=== PATIENT | male | born 1960 | race African-American/Black ===

== ENCOUNTER 2018-02-17 11:07 | Emergency (ER) | payer BC ==
[2018-02-17] MEDS ORDERED: HYDROCODONE/APAP 5/325 MG TAB ONE (15:13)
--- NOTE | 2018-02-17 15:29 | RAD REPORT ---
EXAM DESCRIPTION: USEXTREM VENOUS W COMPRESS BIL02/17/2018 3:21 pm CLINICAL HISTORY: Bilateral leg pain COMPARISON: none FINDINGS: The common femoral, superficial femoral, popliteal and posterior tibial veins bilaterally are compressible and demonstrate augmentation. Doppler demonstrates good flow. IMPRESSION: No evidence of deep venous thrombosis involving either lower extremity.
--- NOTE | 2018-02-17 16:17 | RAD REPORT ---
EXAM DESCRIPTION: RAD - Knee Right 3 View - 02/17/2018 3:46 pm CLINICAL HISTORY: Right FINDINGS: No fracture or dislocation is seen. Marked osteoarthritis involves the medial compartment consisting joint space narrowing and osteophyte s.
--- NOTE | 2018-02-17 16:17 | RAD REPORT ---
EXAM DESCRIPTION: RAD - Knee Left 3 View - 02/17/2018 3:45 pm CLINICAL HISTORY: Left knee pain FINDINGS: No fracture or dislocation is seen. Marked osteoarthritis involves the medial compartment consisting joint space narrowing and osteophyte s. The patella femoral compartment is also involved
--- NOTE | 2018-02-17 16:37 | ER ---
Nurse's Notes [facility] Name: Asa Red Age: 58 yrs Sex: Male : 1960 Arrival Date: 02/17/2018 Time: 11:10 Bed 11 Private MD: Antonio Reece R Diagnosis: Pain in left knee;Pain in right knee Presentation: 02/17 11:15 Presenting complaint: Patient states: bilateral knee pain x 1 month that has been ss getting worse. L knee pain is worse than R knee. History of arthritis. Transition of care: patient was not received from another setting of care. Onset of symptoms is unknown. Risk Assessment: Do you want to hurt yourself or someone else? Patient reports no desire to harm self or others. Initial Sepsis Screen: Does the patient meet any 2 criteria? No. Patient's initial sepsis screen is negative. Does the patient have a suspected source of infection? No. Patient's initial sepsis screen is negative. Care prior to arrival: None. 11:15 Method Of Arrival: Ambulatory ss 11:15 Acuity: HOLLEY 4 ss Historical: - Allergies: 11:17 No Known Allergies; ss - Immunization history:: Adult Immunizations up to date. - Social history:: Smoking status: Patient uses tobacco products, smokes one-half pack cigarettes per day. - Ebola Screening: : Patient denies exposure to infectious person Patient denies travel to an Ebola-affected area in the 21 days before illness onset. Screenin:53 Abuse screen: Denies threats or abuse. Denies injuries from another. Nutritional sv screening: No deficits noted. Tuberculosis screening: No symptoms or risk factors identified. Fall Risk None identified. Assessment: 14:55 Reassessment: Pt gone for diagnostics, unable to medicate at this time. sv 15:35 Reassessment: Patient appears in no apparent distress at this time. General: Appears in hb no apparent distress. Behavior is calm, cooperative. Pain: Pain currently is 7 out of 10 on a pain scale. Neuro: Level of Consciousness is awake, alert, obeys commands, Oriented to person, place, time, situation. Cardiovascular: Capillary refill < 3 seconds Patient's skin is warm and dry. Respiratory: Airway is patent Trachea midline Respiratory effort is even, unlabored, Respiratory pattern is regular, symmetrical. GI: No signs and/or symptoms were reported involving the gastrointestinal system. : No signs and/or symptoms were reported regarding the genitourinary system. EENT: No signs and/or symptoms were reported regarding the EENT system. Derm: Skin is intact, is healthy with good turgor. Musculoskeletal: Reports pain in bilateral knees. 16:53 Reassessment: Patient appears in no apparent distress at this time. Patient and/or sv family updated on plan of care and expected duration. Pain level reassessed. Patient is alert, oriented x 3, equal unlabored respirations, skin warm/dry/pink. Vital Signs: 11:17 BP 130 / 80; Pulse 57; Resp 16; Temp 98.1(O); Pulse Ox 95% on R/A; Weight 117.93 kg; ss Height 5 ft. 10 in. (177.80 cm); Pain 10/10; 11:17 Body Mass Index 37.31 (117.93 kg, 177.80 cm) ED Course: 11:10 Patient arrived in ED. sb2 11:10 Antonio Reece MD is Private Physician. sb2 11:16 Triage completed. ss 11:17 Arm band placed on right wrist. ss 14:31 Levi Patel NP is PHCP. pm1 14:31 Dany Jacome MD is Attending Physician. pm1 15:05 Patient taken to ultrasound. via wheelchair. aa4 15:21 Extrem Venous W Compression Alcon US In Process Unspecified. EDMS 15:21 Ultrasound completed. Patient tolerated well. Patient moved to radiology. aa4 15:25 Abby Johnston, RN is Primary Nurse. hb 15:45 Knee Left 3 View XRAY In Process Unspecified. EDMS 15:45 Knee Right 3 View XRAY In Process Unspecified. EDMS 16:33 Tramaine Goldsmith MD is Referral Physician. pm1 16:35 Antonio Reece MD is Referral Physician. pm1 16:53 Patient has correct armband on for positive identification. sv 16:53 No provider procedures requiring assistance completed. Patient did not have IV access sv during this emergency room visit. Administered Medications: 15:32 Drug: [place] 5 mg-325 mg 1 tabs Route: PO; hb 16:55 Follow up: Response: No adverse reaction sv Outcome: 16:36 Discharge ordered by . pm1 16:54 Discharged to home ambulatory, with family. sv 16:54 Condition: stable 16:54 Discharge instructions given to patient, family, Instructed on discharge instructions, follow up and referral plans. medication usage, Demonstrated understanding of instructions, follow-up care, medications, Prescriptions given X 1. 16:54 Patient left the ED. sv Signatures: Dispatcher [employer] EDMS Adelaida Ivory RN RN Mary Bustillos aa4 Kerline Lopez RN RN Levi Patel NP POWER CHISEL OPERATOR pm1 Abby Johnston RN RN Sobia Dominguez sb2 Corrections: (The following items were deleted from the chart) 16:13 15:35 Musculoskeletal: Reports pain in right knee [facility]
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
== END 2018-02-17 16:54 | disposition home or self-care (01) ==
LOC: ER 11:07
DX: M79.605 Pain in left leg (principal); M79.604 Pain in right leg; M17.0 Bilateral primary osteoarthritis of knee; F17.210 Nicotine dependence, cigarettes, uncomplicated
CPT/HCPCS: 93970; 99284

== ENCOUNTER 2019-04-27 15:33 | Emergency (ER) | payer BC, SELFPAY ==
[2019-04-27 16:21] LABS: Absolute Lymphocytes (CBC) 1.8 K/uL (0.7-4.9); Basophils % 1.1 % (0-1.3); Hematocrit 44.7 % (39.6-49.0); Lymphocytes % 28.1 % (15.3-44.8); MPV 9.4 fL (7.6-11.3); RBC Red Blood Cell Count 5.29 M/uL (4.33-5.43)
[2019-04-27] MEDS ORDERED: ONDANSETRON 4 MG/2 ML VIAL ONE (16:22)
[2019-04-27 16:33] LABS: Albumin 3.8 g/dL (3.4-5.0); Bilirubin Total 0.4 mg/dL (0.2-1.0); Potassium 3.5 mmol/L (3.5-5.1); Protein, Total 7.2 g/dL (6.4-8.2)
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
--- NOTE | 2019-04-27 16:38 | RAD REPORT ---
EXAM DESCRIPTION: Tanner Presley Left04/27/2019 4:15 pm CLINICAL HISTORY: Left leg pain status post injury FINDINGS: No fracture is seen
--- NOTE | 2019-04-27 16:40 | RAD REPORT ---
EXAM DESCRIPTION: RAD - Foot Left 3 View - 04/27/2019 4:15 pm CLINICAL HISTORY: Left Foot pain FINDINGS: No fracture or dislocation is seen. Osteoporosis. Hallux valgus deformity
[2019-04-27 17:13] LABS: Urine Blood TRACE (NEG); Urine Glucose NEGATIVE (NEG); Urine Protein TRACE (NEG); Urine pH 6.5 (5.0-7.0)
[2019-04-27 17:16] LABS: Barbiturates NEGATIVE (NEGATIVE); Benzodiazepines NEGATIVE (NEGATIVE); Cocaine NEGATIVE (NEGATIVE); METHAMPHETAM NEGATIVE (NEGATIVE); Methadone NEGATIVE (NEGATIVE); Opiates NEGATIVE (NEGATIVE); Phencyclidine NEGATIVE (NEGATIVE); THC Cannibis NEGATIVE (NEGATIVE)
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
[2019-04-27] MEDS ORDERED: ACETAMINOPHEN 325 MG TABLET ONE (17:30)
[2019-04-27] MEDS ORDERED: TETANUS & DIPHTHERIA TOX,ADULT 0.5 ML VIAL ONE (18:14)
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
[2019-04-27 19:01] VITALS: TEMP 97.6
[2019-04-27 19:02] VITALS: BP 127/86; O2SAT 99
--- NOTE | 2019-04-29 05:24 | EKG ---
Test Date: 2019-04-27 Test Time: 15:43:00 Sausage Stringer: DEBORAH MEASUREMENT RESULTS: Intervals: Rate: 74 NM: 172 QRSD: 84 QT: 374 QTc: 415 [place]: P: 45 NM: 172 QRS: 36 T: 58 INTERPRETIVE STATEMENTS: Normal sinus rhythm Normal ECG No previous ECG available for comparison Electronically Signed On 04-29-19 05:23:55 CRYSTAL EVALUATOR by Inocencio Candelario
== END 2019-04-27 18:40 | disposition home or self-care (01) ==
LOC: ER 15:33
DX: S90.32XA Contusion of left foot, initial encounter (principal); S09.90XA Unspecified injury of head, initial encounter; S90.812A Abrasion, left foot, initial encounter; V83.5XXA Driver of special industrial vehicle injured in nontraffic accident, initial encounter; Y93.89 Activity, other specified; Y92.9 Unspecified place or not applicable; Y99.0 Civilian activity done for income or pay; Z72.0 Tobacco use
CPT/HCPCS: 36415; 70450; 71260; 72125; 74177; 80053; 80307; 81003; 82947; 85025; 90471; 90714; 93005; 96374; 99285; J2405; Q9967

== ENCOUNTER 2019-10-21 07:03 | Emergency (ER) | payer BC, SELFPAY ==
[2019-10-21] MEDS ORDERED: NA CHLORIDE 0.9% 500 ML ONE (08:01)
[2019-10-21 08:19] LABS: Absolute Lymphocytes (CBC) 1.8 K/uL (0.7-4.9); Basophils % 0.8 % (0-1.3); Hematocrit 45.1 % (39.6-49.0); Lymphocytes % 29.4 % (15.3-44.8); MPV 9.3 fL (7.6-11.3); RBC Red Blood Cell Count 5.29 M/uL (4.33-5.43)
[2019-10-21 08:31] LABS: ALT/SGPT 14 U/L (12-78); AST/SGOT 5 U/L (15-37); Albumin 3.2 g/dL (3.4-5.0); Alkaline Phosphatase 71 U/L (45-117); BUN Blood Urea Nitrogen 15 mg/dL (7-18); Bicarbonate 27 mmol/L (21-32); Bilirubin Direct 0.2 mg/dL (0-0.2); Bilirubin Total 0.4 mg/dL (0.2-1.0); Glucose Level 112 mg/dL (74-106); Lipase 40 U/L (73-393); Potassium 3.7 mmol/L (3.5-5.1); Protein, Total 6.9 g/dL (6.4-8.2); Sodium Level 142 mmol/L (136-145)
--- NOTE | 2019-10-21 10:27 | RAD REPORT ---
EXAM DESCRIPTION: CT - Abdomen Pelvis W Contrast - 10/21/2019 10:09 am CLINICAL HISTORY: Abdominal pain. COMPARISON: 2018 TECHNIQUE: Computed axial tomography of the abdomen and pelvis was obtained. 100 cc Isovue-300 is ad ministered intravenously. Oral contrast was given. All CT scans are performed using dose optimization technique as appropriate and may include automated exposure control or mA/KV adjustment according to patient size. FINDINGS: The liver, spleen, pancreas, adrenals and right kidney appear unremarkable. A 2 millimeter nonobstruc ting left renal calculus. Small umbilical hernia contains fat Sclerotic and lytic changes involve the the superior and inferior vertebral endplates of L3. Mild cys tic change involves the inferior vertebral endplate of L2. This is without significant change from th e prior exam and likely is degenerative in nature. Spondylosis involves lumbar spine resulting in spi nal stenosis The appendix is normal caliber. There is no evidence of diverticulitis IMPRESSION: A 2 millimeter nonobstructing left renal calculus Abnormal signal involving the L2 and L3 vertebral bodies most likely degenerative in nature. An infla mmatory/infectious process can also have this appearance and should be correlated clinically and with appropriate lab values
--- NOTE | 2019-10-21 10:38 | ER ---
Nurse's Notes [facility] Name: Asa Red Age: 59 yrs Sex: Male : 1960 Arrival Date: 10/21/2019 Time: 07:03 Bed 5 Private MD: Diagnosis: Unspecified abdominal pain Presentation: 10/20 07:22 Chief complaint: Patient states: "my stomach feels like a knot and it's hurting". pt aa5 reports nausea, denies vomiting,denies diarrhea. Pt states "my blood pressure was high yesterday and I took my blood pressure medicine and last night my said it was low but I don't remember what it was". Coronavirus screen: Proceed with normal triage. Patient denies a cough. Patient denies shortness of breath or difficulty breathing. Patient denies measured and/or subjective temperature greater than 100.4F prior to today's visit. Patient denies travel on a cruise ship or to a country the [facility] currently lists as an affected area. Patient denies contact with known and/or suspected case of COVID-19. Ebola Screen: Patient negative for fever greater than or equal to 101.5 degrees Fahrenheit, and additional compatible Ebola Virus Disease symptoms. Initial Sepsis Screen: Does the patient meet any 2 criteria? No. Patient's initial sepsis screen is negative. Does the patient have a suspected source of infection? No. Patient's initial sepsis screen is negative. Risk Assessment: Do you want to hurt yourself or someone else? Patient reports no desire to harm self or others. Onset of symptoms was September 2019. 07:22 Acuity: HOLLEY 3 aa5 07:22 Method Of Arrival: Ambulatory aa5 Historical: - Allergies: 07:26 No Known Allergies; aa5 - Home Meds: 07:26 metoprolol ER mg daily [Active]; meloxicam 7.5 mg oral tab twice a day [Active]; aa5 - PMHx: 07:26 Hypertension; Arthritis; aa5 - PSHx: 07:26 None; aa5 - Immunization history:: Flu vaccine is not up to date. - Social history:: Smoking status: Patient reports the use of cigarette tobacco products, smokes one-half pack cigarettes per day. - Family history:: not pertinent. - Hospitalizations: : No recent hospitalization is reported. Screenin:00 Abuse screen: Denies threats or abuse. Denies injuries from another. Nutritional sv screening: No deficits noted. Tuberculosis screening: No symptoms or risk factors identified. Fall Risk None identified. Assessment: 08:00 General: Appears in no apparent distress. uncomfortable, well groomed, well developed, sv Behavior is calm, cooperative, appropriate for age. Pain: Complains of pain in abdomen. Neuro: Level of Consciousness is awake, alert, obeys commands, Oriented to person, place, time, situation, Moves all extremities. Full function. Respiratory: Airway is patent Respiratory effort is even, unlabored, Respiratory pattern is regular, symmetrical. GI: Abdomen is round. Derm: Skin is pink, warm \\T\\ dry. 11:03 Reassessment: Patient appears in no apparent distress at this time. Patient and/or sv family updated on plan of care and expected duration. Pain level reassessed. Patient is alert, oriented x 3, equal unlabored respirations, skin warm/dry/pink. GI: Reports nausea, vomiting. 11:44 Reassessment: Patient appears in no apparent distress at this time. Patient and/or sv family updated on plan of care and expected duration. Pain level reassessed. Patient is alert, oriented x 3, equal unlabored respirations, skin warm/dry/pink. Patient states feeling better. Patient states symptoms have improved. GI: Patient currently denies nausea. Vital Signs: 07:26 BP 147 / 84; Pulse 61; Resp 16 S; Temp 98.4(O); Pulse Ox 99% on R/A; Weight 120.66 kg aa5 (R); Height 5 ft. 10 in. (177.80 cm) (R); Pain 8/10; 08:53 BP 145 / 77; Pulse 52; Resp 16; Pulse Ox 99% ; sv 09:33 BP 128 / 69; Pulse 50; Resp 16; Pulse Ox 99% ; sv 07:26 Body Mass Index 38.17 (120.66 kg, 177.80 cm) aa5 ED Course: 07:03 Patient arrived in ED. ds1 07:22 Arm band placed on. aa5 07:24 Triage completed. aa5 07:27 Ildefonso Rubin MD is Attending Physician. rn 07:39 Radiology exam delayed due to lab results not completed at this time. (BUN/Creatinine) nj IV insertion attempt and/or patient not having appropriate IV at this time. 07:49 Adelaida Ivory, RN is Primary Nurse. sv 08:00 Patient has correct armband on for positive identification. Bed in low position. Call sv light in reach. Pulse ox on. NIBP on. 08:00 Inserted saline lock: 20 gauge in right antecubital area, using aseptic technique. sv Blood collected. Flushed right antecubital with 5 ml normal saline. 08:13 Radiology exam delayed due to lab results not completed at this time. (BUN/Creatinine). nj 09:[address] Scan. sv 10:09 CT Abd/Pelvis - PO and IV Contrast In Process Unspecified. EDMS 11:44 No provider procedures requiring assistance completed. IV discontinued, intact, sv bleeding controlled, No redness/swelling at site. Pressure dressing applied. Administered Medications: 08:12 Drug: NS 0.9% 500 ml Route: IV; Rate: bolus; Site: right antecubital; sv 08:45 Follow up: Response: No adverse reaction; IV Status: Completed infusion; IV Intake: sv 500ml 11:03 Drug: Zofran (Ondansetron) 4 mg Route: IVP; Site: right antecubital; sv 11:47 Follow up: Response: No adverse reaction sv Intake: 08:45 IV: 500ml; Total: 500ml. sv Outcome: 10:37 Discharge ordered by . rn 11:44 Discharged to home ambulatory. sv 11:44 Condition: stable 11:44 Discharge instructions given to patient, Instructed on discharge instructions, follow up and referral plans. Demonstrated understanding of instructions, follow-up care. 11:47 Patient left the ED. sv Signatures: Dispatcher [employer] EDIL Adelaida Ivory, RN Ashlee Giles ds1 Ildefonso Rubin MD MD rn Calderon, Audri, RN RN aa5 Jordan, Nathan nj
--- NOTE | 2019-10-21 10:38 | EDPHYS ---
Physician Documentation [facility] Name: Asa Red Age: 59 yrs Sex: Male : 1960 Arrival Date: 10/21/2019 Time: 07:03 Bed 5 Private MD: ED Physician Ildefonso Rubin HPI: 10/20 07:34 This 59 yrs old Black Male presents to ER via Ambulatory with complaints of Abdominal rn Pain, High Blood Pressure. 07:34 The patient presents with abdominal pain in the periumbilical area. Onset: The rn symptoms/episode began/occurred yesterday. The symptoms do not radiate. Associated signs and symptoms: Pertinent positives: nausea, Pertinent negatives: anorexia, blood in stools, chest pain, diarrhea, fever, headache, shortness of breath, testicular pain, vomiting blood. The symptoms are described as crampy. Modifying factors: The symptoms are alleviated by nothing, the symptoms are aggravated by nothing. Severity of pain: At its worst the pain was mild in the emergency department the pain is unchanged. The patient has not experienced similar symptoms in the past. The patient has not recently seen a physician. Reports vague abd cramping and "knots", began yesterday, had bowel movement yesterday, no diarrhea, reports hiccups and nausea since yesterday but feels better today, attributed to high blood pressure, took extra pill last night, didn't make much of a difference. . Historical: - Allergies: 07:26 No Known Allergies; aa5 - Home Meds: 07:26 metoprolol ER mg daily [Active]; meloxicam 7.5 mg oral tab twice a day [Active]; aa5 - PMHx: 07:26 Hypertension; Arthritis; aa5 - PSHx: 07:26 None; aa5 - Immunization history:: Flu vaccine is not up to date. - Social history:: Smoking status: Patient reports the use of cigarette tobacco products, smokes one-half pack cigarettes per day. - Family history:: not pertinent. - Hospitalizations: : No recent hospitalization is reported. ROS: 07:34 Constitutional: Negative for fever, chills, and weight loss, Eyes: Negative for injury, rn pain, redness, and discharge, Neck: Negative for injury, pain, and swelling, Cardiovascular: Negative for chest pain, palpitations, and edema, Respiratory: Negative for shortness of breath, cough, wheezing, and pleuritic chest pain, Abdomen/GI: Negative for diarrhea, and constipation, Back: Negative for injury and pain, : Negative for injury, bleeding, discharge, and swelling, MS/Extremity: Negative for injury and deformity, Skin: Negative for injury, rash, and discoloration, Neuro: Negative for headache, weakness, numbness, tingling, and seizure. Exam: 07:34 Constitutional: This is a well developed, well nourished patient who is awake, alert, rn and in no acute distress. Ambulatory to room without difficulty. Head/Face: Normocephalic, atraumatic. ENT: Moist MM Cardiovascular: Regular rate and rhythm. No pulse deficits. Respiratory: No increased work of breathing, no retractions or nasal flaring. Abdomen/GI: soft, mild periumbilical tenderness, no rebound Skin: Warm, dry MS/ Extremity: Pulses equal, no cyanosis. Neurovascular intact. Full, normal range of motion. Equal circumference. Neuro: Awake and alert, GCS 15, oriented to person, place, time, and situation. Cranial nerves II-XII grossly intact. Motor strength 5/5 in all extremities. Sensory grossly intact. Cerebellar exam normal. Normal gait. Vital Signs: 07:26 BP 147 / 84; Pulse 61; Resp 16 S; Temp 98.4(O); Pulse Ox 99% on R/A; Weight 120.66 kg aa5 (R); Height 5 ft. 10 in. (177.80 cm) (R); Pain 8/10; 08:53 BP 145 / 77; Pulse 52; Resp 16; Pulse Ox 99% ; sv 09:33 BP 128 / 69; Pulse 50; Resp 16; Pulse Ox 99% ; sv 07:26 Body Mass Index 38.17 (120.66 kg, 177.80 cm) aa5 MDM: 07:27 Patient medically screened. rn 09:40 ED course: delay due to radiology, they did not see order for oral contrast. rn 10:36 Differential diagnosis: appendicitis, bowel obstruction, diverticulitis, gastritis, rn non-specific abd pain, Peptic Ulcer Disease, Ureterolithiasis, AAA, constipation, gas. Data reviewed: vital signs, nurses notes, lab test result(s), radiologic studies, CT scan, and as a result, I will discharge patient. Counseling: I had a detailed discussion with the patient and/or guardian regarding: the historical points, exam findings, and any diagnostic results supporting the discharge/admit diagnosis, lab results, radiology results, the need for outpatient follow up, to return to the emergency department if symptoms worsen or persist or if there are any questions or concerns that arise at home. Response to treatment: the patient's symptoms have markedly improved after treatment, and as a result, I will discharge patient. Special discussion: Based on the patient's Hx, exam, and Dx evaluation, there is no indication for emergent surgery or inpatient Tx. It is understood by the patient/guardian that if the Sx's persist or worsen they need to return immediately for re-evaluation. I discussed with the patient/guardian in detail that at this point there is no indication for admission to the hospital. It is understood, however, that if the symptoms persist or worsen the patient needs to return immediately for re-evaluation. ED course: No acute findings in blood or ct abdomen, will dc home with return precautions.. 10/20 07:34 Order name: Basic Metabolic Panel; Complete Time: 08:43 rn 10/20 07:34 Order name: CBC with Diff; Complete Time: 08:43 rn 10/20 07:34 Order name: Hepatic Function; Complete Time: 08:43 rn 10/20 07:34 Order name: Lipase; Complete Time: 08:43 rn 10/20 07:34 Order name: CT Abd/Pelvis - PO and IV Contrast; Complete Time: 10:35 rn 10/20 07:34 Order name: IV Saline Lock; Complete Time: 08:56 rn 10/20 07:34 Order name: Labs collected and sent; Complete Time: 08:56 rn Administered Medications: 08:12 Drug: NS 0.9% 500 ml Route: IV; Rate: bolus; Site: right antecubital; sv 08:45 Follow up: Response: No adverse reaction; IV Status: Completed infusion; IV Intake: sv 500ml 11:03 Drug: Zofran (Ondansetron) 4 mg Route: IVP; Site: right antecubital; sv 11:47 Follow up: Response: No adverse reaction sv Disposition: 10/21/19 10:37 Discharged to Home. Impression: Unspecified abdominal pain. - Condition is Stable. - Discharge Instructions: Abdominal Pain, Adult, Hypertension. - Medication Reconciliation Form, Thank You Letter, Antibiotic Education, Prescription Opioid Use, Work release form form. - Follow up: Private Physician; When: As needed; Reason: Recheck today's complaints, Re-evaluation by your physician. - Problem is new. - Symptoms have improved. Signatures: Dispatcher [employer] EDAdelaida Clarke RN Ildefonso Miller MD MD rn Calderon, Della, SOTO RN aa5 Corrections: (The following items were deleted from the chart) 07:36 07:34 Constitutional: Negative for fever, chills, and weight loss, Eyes: Negative for rn injury, pain, redness, and discharge, Neck: Negative for injury, pain, and swelling, Cardiovascular: Negative for chest pain, palpitations, and edema, Respiratory: Negative for shortness of breath, cough, wheezing, and pleuritic chest pain, Abdomen/GI: Negative for vomiting, diarrhea, and constipation, Back: Negative for injury and pain, : Negative for injury, bleeding, discharge, and swelling, MS/Extremity: Negative for injury and deformity, Skin: Negative for injury, rash, and discoloration, Neuro: Negative for headache, weakness, numbness, tingling, and seizure, rn 11:47 10:37 10/21/2019 10:37 Discharged to Home. Impression: Unspecified abdominal pain. sv Condition is Stable. Forms are Medication Reconciliation Form, Thank You Letter, Antibiotic Education, Prescription Opioid Use. Follow up: Private Physician; When: As needed; Reason: Recheck today's complaints, Re-evaluation by your physician. Problem is new. Symptoms have improved. rn
[2019-10-21] MEDS ORDERED: ONDANSETRON 4 MG/2 ML VIAL ONE (11:06)
[2019-10-21 11:58] VITALS: BP 145/77; O2SAT 99
== END 2019-10-21 11:47 | disposition home or self-care (01) ==
LOC: ER 07:03
DX: R10.9 Unspecified abdominal pain (principal); I10 Essential (primary) hypertension; F17.210 Nicotine dependence, cigarettes, uncomplicated
CPT/HCPCS: 96361; 85025; 80048; 36415; 80076; 83690; 74177; 96374; 99284; Q9967; J7040; J2405

== ENCOUNTER 2020-03-17 06:54 | Emergency (ER) | payer BC ==
[2020-03-17] MEDS ORDERED: ONDANSETRON 4 MG/2 ML VIAL ONE (08:05)
[2020-03-17 08:23] LABS: Absolute Lymphocytes (CBC) 1.4 K/uL (0.7-4.9); Lymphocytes % 22.9 % (15.3-44.8); MPV 9.6 fL (7.6-11.3); RBC Red Blood Cell Count 5.49 M/uL (4.33-5.43)
[2020-03-17 08:44] LABS: ALT/SGPT 18 U/L (12-78); AST/SGOT 9 U/L (15-37); Albumin 3.4 g/dL (3.4-5.0); Alkaline Phosphatase 80 U/L (45-117); BUN Blood Urea Nitrogen 11 mg/dL (7-18); Bicarbonate 29 mmol/L (21-32); Bilirubin Direct 0.2 mg/dL (0-0.2); Bilirubin Total 0.6 mg/dL (0.2-1.0); Glucose Level 111 mg/dL (74-106); Lipase 30 U/L (73-393); Potassium 3.8 mmol/L (3.5-5.1); Protein, Total 7.3 g/dL (6.4-8.2); Sodium Level 139 mmol/L (136-145)
--- NOTE | 2020-03-17 09:30 | EDPHYS ---
Physician Documentation [facility] Name: Asa Red Age: 60 yrs Sex: Male : 1960 Arrival Date: 03/17/2020 Time: 06:56 Bed 17 Private MD: ED Physician Ildefonso Rubin HPI: 03/17 09:32 This 60 yrs old Black Male presents to ER via Ambulatory with complaints of Nausea. kb 09:32 The patient presents to the emergency department with nausea, vomiting. Onset: The kb symptoms/episode began/occurred this morning. Possible causes: unknown. The symptoms are aggravated by nothing. The symptoms are alleviated by food . Associated signs and symptoms: Pertinent positives: nausea, vomiting, abd fullness, Pertinent negatives: abdominal pain, fever. Severity of symptoms: At their worst the symptoms were moderate in the emergency department the symptoms are unchanged. The patient has not experienced similar symptoms in the past. The patient has not recently seen a physician. Pt reports abd fullness for a few days, nausea and vomiting started last night. Historical: - Allergies: 07:38 No Known Allergies; em - Home Meds: 07:38 meloxicam 7.5 mg Oral tab twice a day [Active]; metoprolol ER mg daily [Active]; em - PMHx: 07:38 Arthritis; Hypertension; em - PSHx: 07:38 None; em - Immunization history:: Adult Immunizations up to date. - Social history:: Smoking status: Patient denies any tobacco usage or history of. ROS: 09:32 Constitutional: Negative for fever, chills, and weight loss, Cardiovascular: Negative kb for chest pain, palpitations, and edema, Respiratory: Negative for shortness of breath, cough, wheezing, and pleuritic chest pain, Back: Negative for injury and pain, MS/Extremity: Negative for injury and deformity, Skin: Negative for injury, rash, and discoloration, Neuro: Negative for headache, weakness, numbness, tingling, and seizure. 09:32 Abdomen/GI: Positive for nausea and vomiting. Exam: 09:32 Constitutional: This is a well developed, well nourished patient who is awake, alert, kb and in no acute distress. Head/Face: Normocephalic, atraumatic. Chest/axilla: Normal chest wall appearance and motion. Nontender with no deformity. No lesions are appreciated. Cardiovascular: Regular rate and rhythm with a normal S1 and S2. No gallops, murmurs, or rubs. Normal PMI, no JVD. No pulse deficits. Respiratory: Lungs have equal breath sounds bilaterally, clear to auscultation and percussion. No rales, rhonchi or wheezes noted. No increased work of breathing, no retractions or nasal flaring. Abdomen/GI: Soft, non-tender, with normal bowel sounds. No distension or tympany. No guarding or rebound. No evidence of tenderness throughout. Back: No spinal tenderness. No costovertebral tenderness. Full range of motion. Skin: Warm, dry with normal turgor. Normal color with no rashes, no lesions, and no evidence of cellulitis. MS/ Extremity: Pulses equal, no cyanosis. Neurovascular intact. Full, normal range of motion. Neuro: Awake and alert, GCS 15, oriented to person, place, time, and situation. Cranial nerves II-XII grossly intact. Motor strength 5/5 in all extremities. Sensory grossly intact. Cerebellar exam normal. Normal gait. Vital Signs: 07:05 BP 144 / 77; Pulse 61; Resp 16; Temp 97.8(TE); Pulse Ox 100% ; Weight 99.79 kg; Height hb 5 ft. 10 in. (177.80 cm); Pain 0/10; 08:32 BP 130 / 73; Pulse 50; Resp 18; Pulse Ox 99% ; em 09:15 BP 132 / 80; Pulse 50; Resp 16; Pulse Ox 99% on R/A; em 07:05 Body Mass Index 31.57 (99.79 kg, 177.80 cm) hb MDM: 07:39 Patient medically screened. kb 08:46 Data reviewed: vital signs, nurses notes. Data interpreted: Pulse oximetry: on room air kb is 100 %. Interpretation: normal. Counseling: I had a detailed discussion with the patient and/or guardian regarding: the historical points, exam findings, and any diagnostic results supporting the discharge/admit diagnosis, lab results, radiology results, the need for outpatient follow up, a family practitioner, to return to the emergency department if symptoms worsen or persist or if there are any questions or concerns that arise at home. 03/17 07:47 Order name: Basic Metabolic Panel; Complete Time: 08:46 kb 09/22 07:47 Order name: CBC with Diff; Complete Time: 08:29 kb 03/17 07:47 Order name: Hepatic Function; Complete Time: 08:46 kb 03/17 07:47 Order name: Lipase; Complete Time: 08:46 kb 03/17 08:47 Order name: US Abdomen Limited; Complete Time: 10:00 kb 03/17 07:47 Order name: IV Saline Lock; Complete Time: 08:11 kb 03/17 07:47 Order name: Labs collected and sent; Complete Time: 08:11 kb Administered Medications: 08:10 Drug: Zofran (Ondansetron) 4 mg Route: IVP; Site: right antecubital; em Disposition: 10:42 Co-signature as Attending Physician, Ildefonso Rubin MD. rn Disposition: 03/17/20 09:29 Discharged to Home. Impression: Nausea and vomiting. - Condition is Stable. - Discharge Instructions: Nausea and Vomiting, Adult, [id number]. - Prescriptions for Bentyl 20 mg Oral Tablet - take 1 tablet by ORAL route every 6 hours As needed; 20 tablet. Zofran 4 mg Oral Tablet - take 1 tablet by ORAL route every 6 hours As needed; 20 tablet. - Medication Reconciliation Form, Thank You Letter, Antibiotic Education, Prescription Opioid Use, Work release form form. - Follow up: Emergency Department; When: As needed; Reason: Worsening of condition. Follow up: Private Physician; When: 2 - 3 days; Reason: Recheck today's complaints, Continuance of care, Re-evaluation by your physician. Signatures: Dispatcher [employer] Marisol Cutler, BRENDON-C BRENDON-Davi Barbour, RN RN Ildefonso Christopher MD MD international editorial producer: (The following items were deleted from the chart) 10:04 09:29 03/17/2020 09:29 Discharged to Home. Impression: Nausea and vomiting. Condition em is Stable. Forms are Medication Reconciliation Form, Thank You Letter, Antibiotic Education, Prescription Opioid Use. Follow up: Emergency Department; When: As needed; Reason: Worsening of condition. Follow up: Private Physician; When: 2 - 3 days; Reason: Recheck today's complaints, Continuance of care, Re-evaluation by your physician. kb
--- NOTE | 2020-03-17 09:30 | ER ---
Nurse's Notes [facility] Name: Asa Red Age: 60 yrs Sex: Male : 1960 Arrival Date: 03/17/2020 Time: 06:56 Bed 17 Private MD: Diagnosis: Nausea and vomiting Presentation: 03/17 07:05 Chief complaint: N/V x 2 days. Denies fever/pain/diarrhea. Coronavirus screen: nausea, hb vomiting. Client presents with at least one sign or symptom that may indicate coronavirus-19. Ebola Screen: No symptoms or risks identified at this time. Initial Sepsis Screen: Does the patient meet any 2 criteria? No. Patient's initial sepsis screen is negative. Does the patient have a suspected source of infection? No. Patient's initial sepsis screen is negative. Risk Assessment: Do you want to hurt yourself or someone else? Patient reports no desire to harm self or others. Onset of symptoms was March 16, 2020. 07:05 Method Of Arrival: Ambulatory hb 07:05 Acuity: HOLLEY 3 hb Historical: - Allergies: 07:38 No Known Allergies; em - Home Meds: 07:38 meloxicam 7.5 mg Oral tab twice a day [Active]; metoprolol ER mg daily [Active]; em - PMHx: 07:38 Arthritis; Hypertension; em - PSHx: 07:38 None; em - Immunization history:: Adult Immunizations up to date. - Social history:: Smoking status: Patient denies any tobacco usage or history of. Screenin:37 Abuse screen: Denies threats or abuse. Nutritional screening: No deficits noted. em Tuberculosis screening: No symptoms or risk factors identified. Fall Risk None identified. Assessment: 07:38 General: Appears in no apparent distress. comfortable, Behavior is calm, cooperative, em appropriate for age, Denies fever. Pain: Complains of pain in abdomen Pain currently is 0 out of 10 on a pain scale. Neuro: Level of Consciousness is awake, alert, obeys commands, Oriented to person, place, time, situation, Appropriate for age. Cardiovascular: Capillary refill < 3 seconds Patient's skin is warm and dry. Respiratory: Airway is patent Respiratory effort is even, unlabored, Respiratory pattern is regular, symmetrical. GI: Abdomen is flat, Reports indigestion, nausea, vomiting, Patient currently denies diarrhea. Derm: Skin is intact, is healthy with good turgor, Skin is pink, warm \T\ dry. Musculoskeletal: Capillary refill < 3 seconds, Range of motion: intact in all extremities. 09:00 Reassessment: pt taken to US via wheelchair. em 09:40 Reassessment: Patient appears in no apparent distress at this time. Patient and/or em family updated on plan of care and expected duration. Pain level reassessed. Patient is alert, oriented x 3, equal unlabored respirations, skin warm/dry/pink. Patient states symptoms have improved. Vital Signs: 07:05 BP 144 / 77; Pulse 61; Resp 16; Temp 97.8(TE); Pulse Ox 100% ; Weight 99.79 kg; Height hb 5 ft. 10 in. (177.80 cm); Pain 0/10; 08:32 BP 130 / 73; Pulse 50; Resp 18; Pulse Ox 99% ; em 09:15 BP 132 / 80; Pulse 50; Resp 16; Pulse Ox 99% on R/A; em 07:05 Body Mass Index 31.57 (99.79 kg, 177.80 cm) hb ED Course: 06:56 Patient arrived in ED. cl3 07:06 Triage completed. hb 07:36 Marisol Espinoza FNP-C is PHCP. kb 07:36 Ildefonso Rubin MD is Attending Physician. kb 07:37 Davi Edgar, SOTO is Primary Nurse. em 07:37 Patient has correct armband on for positive identification. Placed in gown. Bed in low em position. Call light in reach. 08:10 Initial lab(s) drawn, by me, sent to lab. Inserted saline lock: 22 gauge in right em antecubital area, using aseptic technique. Blood collected. 09:17 US Abdomen Limited In Process Unspecified. EDMS 09:58 No provider procedures requiring assistance completed. IV discontinued, intact, em bleeding controlled, No redness/swelling at site. Pressure dressing applied. Administered Medications: 08:10 Drug: Zofran (Ondansetron) 4 mg Route: IVP; Site: right antecubital; em Outcome: 09:29 Discharge ordered by . kb 10:04 Discharged to home ambulatory. em 10:04 Condition: good 10:04 Discharge instructions given to patient, Instructed on discharge instructions, follow up and referral plans. medication usage, Demonstrated understanding of instructions, follow-up care, medications, Prescriptions given X 1. 10:04 Patient left the ED. em Signatures: Dispatcher [employer] Marisol Cutler, BRENDON-C BRENDON-Davi Barbour, RN RN Abby Philippe, SOTO RN Arnel Alvarez cl3
--- NOTE | 2020-03-17 09:56 | RAD REPORT ---
EXAM DESCRIPTION: US - Abdomen Exam Limited - 03/17/2020 9:16 am CLINICAL HISTORY: ABD PAIN COMPARISON: Abdomen Pelvis W Contrast dated 10/21/2019 FINDINGS: No gallstones, sludge or other abnormalities within the gallbladder lumen. There is no wal l thickening or pericholecystic fluid. No common duct stone or biliary tree dilatation identified. IMPRESSION: Normal gallbladder and biliary tree ultrasound.
[2020-03-17 10:28] VITALS: TEMP 97.8
[2020-03-17 10:29] VITALS: O2SAT 99
[2020-03-17 10:30] VITALS: BP 132/80
== END 2020-03-17 10:04 | disposition home or self-care (01) ==
LOC: ER 06:54
DX: R11.2 Nausea with vomiting, unspecified (principal); I10 Essential (primary) hypertension
CPT/HCPCS: 85025; 80048; 36415; 80076; 83690; 76705; 96374; 99284; J2405

== ENCOUNTER 2020-03-20 18:53 | Emergency (ER) | payer BC ==
[2020-03-20] MEDS ORDERED: ONDANSETRON 4 MG/2 ML VIAL ONE (20:04)
[2020-03-20] MEDS ORDERED: NA CHLORIDE 0.9% 500 ML ONE (20:04)
[2020-03-20] MEDS ORDERED: MORPHINE 4 MG/ML SYR ONE (20:04)
[2020-03-20] MEDS ORDERED: FAMOTIDINE 20 MG/2 ML VIAL IV ONE (20:04)
[2020-03-20 20:11] LABS: Absolute Lymphocytes (CBC) 1.4 K/uL (0.7-4.9); Basophils % 1.1 % (0-1.3); Lymphocytes % 22.5 % (15.3-44.8); MPV 9.2 fL (7.6-11.3); RBC Red Blood Cell Count 5.66 M/uL (4.33-5.43)
[2020-03-20 20:30] LABS: ALT/SGPT 20 U/L (12-78); AST/SGOT 7 U/L (15-37); Albumin 3.4 g/dL (3.4-5.0); Alkaline Phosphatase 78 U/L (45-117); BUN Blood Urea Nitrogen 8 mg/dL (7-18); Bicarbonate 32 mmol/L (21-32); Bilirubin Direct 0.2 mg/dL (0-0.2); Bilirubin Total 0.7 mg/dL (0.2-1.0); Glucose Level 100 mg/dL (74-106); Lipase 32 U/L (73-393); Potassium 4.3 mmol/L (3.5-5.1); Protein, Total 7.2 g/dL (6.4-8.2); Sodium Level 139 mmol/L (136-145)
--- NOTE | 2020-03-20 21:07 | RAD REPORT ---
EXAM DESCRIPTION: CT - Abdomen Pelvis W Contrast - 03/20/2020 8:39 pm CLINICAL HISTORY: ABD PAIN COMPARISON: <Comparisons> TECHNIQUE: Biphasic, helical CT imaging of the abdomen and pelvis was performed following 100 ml non -ionic IV contrast. Oral contrast was given. All CT scans are performed using dose optimization technique as appropriate and may include automated exposure control or mA/KV adjustment according to patient size. FINDINGS: No suspicious findings in the lung bases. The liver, spleen, and pancreas show no suspicious findings. Gallbladder and biliary tree are also wi thout suspicious finding. Liver attenuation is borderline to mild fatty infiltrated. Symmetric renal function is seen with no hydronephrosis or suspicious renal mass. Nonobstructing calc ariadna noted on the left No pyelonephritis or acute parenchymal process. No bladder abnormalities. No ad renal abnormalities. No dilated bowel loops or bowel wall thickening. Fluid filled nondilated small bowel loops are presen t. The appendix is normal. No free air, free fluid or inflammatory stranding. No hernia, mass or bul ky lymphadenopathy. No suspicious bony findings. Prominent degenerative change involves the L2-3 and L3-4 disc spaces. No pathologic bone process seen. IMPRESSION: Contrast enhanced CT abdomen and pelvis showing no emergent finding. A few fluid-filled small bowel loops are present. A nonspecific enteritis is possible.
[2020-03-20] MEDS ORDERED: MAGNE/ALUM HYDROXD 30 ML UCUP ONE (21:36)
[2020-03-20] MEDS ORDERED: LIDOCAINE VISCOUS 2% SOLN 15 ML UDC ONE (21:36)
--- NOTE | 2020-03-20 21:58 | ER ---
Nurse's Notes [facility] Name: Asa Red Age: 60 yrs Sex: Male : 1960 Arrival Date: 03/20/2020 Time: 18:56 Bed 2 Private MD: Diagnosis: Upper abdominal pain, unspecified;Enteritis;Vomiting Presentation: 03/20 19:08 Chief complaint: Patient states: Upper abdominal pain for 2 weeks. + N/V. Seen here a ll1 few days ago. Still sick. + chills, no known fever. Coronavirus screen: Client denies travel out of the [place] in the last 14 days. At this time, the client does not indicate any symptoms associated with coronavirus-19. Ebola Screen: Patient denies travel to an Ebola-affected area in the 21 days before illness onset. Initial Sepsis Screen: Does the patient meet any 2 criteria? No. Patient's initial sepsis screen is negative. Risk Assessment: Do you want to hurt yourself or someone else? Patient reports no desire to harm self or others. Onset of symptoms was March 06, 2020. 19:08 Method Of Arrival: Wheelchair ll1 19:08 Acuity: HOLLEY 3 ll1 Historical: - Allergies: 19:10 No Known Allergies; ll1 - PMHx: 19:10 Arthritis; Hypertension; ll1 - PSHx: 19:10 None; ll1 - Immunization history:: Flu vaccine is not up to date. - Social history:: Smoking status: Patient reports the use of cigarette tobacco products, smokes one-half pack cigarettes per day. Screenin:02 Abuse screen: Denies threats or abuse. Denies injuries from another. Nutritional rr5 screening: No deficits noted. Tuberculosis screening: No symptoms or risk factors identified. Fall Risk IV access (20 points). Total Simeon Fall Scale indicates No Risk (0-24 pts). Assessment: 19:40 General: Appears in no apparent distress. uncomfortable, Behavior is calm, cooperative, rr5 appropriate for age, Reports chills for. Pain: Complains of pain in epigastric area and right upper quadrant Pain Quality of pain is described as aching, Pain began gradually, Is intermittent. Neuro: Level of Consciousness is awake, alert, obeys commands, Oriented to person, place, time, situation. Cardiovascular: Capillary refill < 3 seconds Patient's skin is warm and dry. Respiratory: Airway is patent Respiratory effort is even, unlabored, Respiratory pattern is regular, symmetrical. GI: Abdomen is round non-distended, Bowel sounds Abd is soft and non tender Reports upper abdominal pain, nausea, vomiting. : No signs and/or symptoms were reported regarding the genitourinary system. EENT: No signs and/or symptoms were reported regarding the EENT system. Derm: Skin is intact, Skin temperature is warm. Musculoskeletal: Circulation, motion, and sensation intact. Capillary refill < 3 seconds. 20:44 Reassessment: Patient appears in no apparent distress at this time. Patient is alert, rr5 oriented x 3, equal unlabored respirations, skin warm/dry/pink. came back from CT scan. Patient states feeling better. Patient states symptoms have improved. 22:15 Reassessment: Patient appears in no apparent distress at this time. Patient is alert, rr5 oriented x 3, equal unlabored respirations, skin warm/dry/pink. discharge instruction given and explained without complaints made Patient states feeling better. Patient states symptoms have improved. Vital Signs: 19:08 BP 145 / 109; Pulse 69; Resp 16; Temp 98.6; Pulse Ox 98% ; Pain 10/10; ll1 20:44 BP 138 / 89; Pulse 55; Resp 19; Pulse Ox 98% ; rr5 22:15 BP 133 / 70; Pulse 60; Resp 19; Pulse Ox 99% ; Pain 0/10; rr5 ED Course: 18:56 Patient arrived in ED. ds1 19:10 Triage completed. ll1 19:10 Arm band placed on. ll1 19:14 Izaiah Gardner MD is Attending Physician. mh7 19:44 Agustin Barron, SOTO is Primary Nurse. rr5 19:50 Agustin Barron RN is Primary Nurse. rr5 20:00 Inserted saline lock: 20 gauge in right antecubital area, using aseptic technique. rr5 Blood collected. 20:03 Patient has correct armband on for positive identification. Placed in gown. Bed in low rr5 position. Call light in reach. Side rails up X2. monitor car operator on. Pulse ox on. NIBP on. 20:38 CT Abd/Pelvis - IV Contrast Only In Process Unspecified. EDMS 21:56 Dhiraj Edwards MD is Referral Physician. 7 22:15 No provider procedures requiring assistance completed. IV discontinued, intact, rr5 bleeding controlled, No redness/swelling at site. Pressure dressing applied. Administered Medications: 19:50 Drug: Pepcid 20 mg Route: IVP; Site: right antecubital; rr5 21:28 Follow up: Response: No adverse reaction rr5 19:50 Drug: NS 0.9% 500 ml Route: IV; Rate: bolus; Site: right antecubital; rr5 20:30 Follow up: Response: No adverse reaction; IV Status: Completed infusion; IV Intake: rr5 500ml 19:52 Drug: Zofran (Ondansetron) 4 mg Route: IVP; Site: right antecubital; rr5 20:50 Follow up: Response: No adverse reaction rr5 19:54 Drug: morphine 4 mg {Note: rass 0.} Route: IVP; Site: right antecubital; rr5 20:20 Follow up: Response: No adverse reaction; Pain is decreased; RASS: Alert and Calm (0) rr5 21:28 Drug: GI Cocktail without - (Maalox Suspension 30 ml, Lidocaine Liquid 2 % 15 rr5 ml) Route: PO; Intake: 20:30 IV: 500ml; Total: 500ml. rr5 Outcome: 21:57 Discharge ordered by . mh7 22:13 Discharged to home ambulatory. rr5 22:13 Condition: stable 22:13 Discharge instructions given to patient, Instructed on discharge instructions, follow up and referral plans. medication usage, Demonstrated understanding of instructions, follow-up care, medications, Prescriptions given X 2. 22:14 Patient left the ED. rr5 Signatures: Dispatcher [employer] [facility] Ashlee Sheehan ds1 Agustin Barron RN RN rr5 Sofi Obrien RN RN ll1 Izaiah Gardner MD MD 7
--- NOTE | 2020-03-20 21:59 | EDPHYS ---
Physician Documentation [facility] Name: Asa Red Age: 60 yrs Sex: Male : 1960 Arrival Date: 03/20/2020 Time: 18:56 Bed 2 Private MD: ED Physician Izaiah Gardner HPI: 03/20 19:59 This 60 yrs old Black Male presents to ER via Wheelchair with complaints of Abdominal mh7 Pain. 19:59 The patient presents with abdominal pain in the upper abdomen. Onset: The mh7 symptoms/episode began/occurred 2 week(s) ago, and became worse today. The symptoms do not radiate. Associated signs and symptoms: Pertinent positives: nausea and vomiting, Pertinent negatives: anorexia, blood in stools, chest pain, constipation, diarrhea, dysuria, fever, headache, hematuria, palpitations, shortness of breath, testicular pain, vomiting blood. The symptoms are described as intermittent, vague, waxing/waning. Modifying factors: The symptoms are alleviated by nothing, the symptoms are aggravated by food. Severity of pain: At its worst the pain was moderate today, in the emergency department the pain is unchanged. The patient has been recently seen at the [facility] Emergency Department, this week. Historical: - Allergies: 19:10 No Known Allergies; ll1 - PMHx: 19:10 Arthritis; Hypertension; ll1 - PSHx: 19:10 None; ll1 - Immunization history:: Flu vaccine is not up to date. - Social history:: Smoking status: Patient reports the use of cigarette tobacco products, smokes one-half pack cigarettes per day. ROS: 19:59 Constitutional: Negative for fever, chills, and weight loss, Eyes: Negative for injury, mh7 pain, redness, and discharge, ENT: Negative for injury, pain, and discharge, Neck: Negative for injury, pain, and swelling, Cardiovascular: Negative for chest pain, palpitations, and edema, Respiratory: Negative for shortness of breath, cough, wheezing, and pleuritic chest pain, Back: Negative for injury and pain, : Negative for injury, bleeding, discharge, and swelling, MS/Extremity: Negative for injury and deformity, Skin: Negative for injury, rash, and discoloration, Neuro: Negative for headache, weakness, numbness, tingling, and seizure, Psych: Negative for depression, anxiety, suicide ideation, homicidal ideation, and hallucinations, Allergy/Immunology: Negative for hives, rash, and allergies, Endocrine: Negative for neck swelling, polydipsia, polyuria, polyphagia, and marked weight changes, Hematologic/Lymphatic: Negative for swollen nodes, abnormal bleeding, and unusual bruising. Exam: 19:59 Head/Face: Normocephalic, atraumatic. Eyes: Pupils equal round and reactive to light, mh7 extra-ocular motions intact. Lids and lashes normal. Conjunctiva and sclera are non-icteric and not injected. Cornea within normal limits. Periorbital areas with no swelling, redness, or edema. Neck: Trachea midline, no thyromegaly or masses palpated, and no cervical lymphadenopathy. Supple, full range of motion without nuchal rigidity, or vertebral point tenderness. No Meningismus. Chest/axilla: Normal chest wall appearance and motion. Nontender with no deformity. No lesions are appreciated. Cardiovascular: Regular rate and rhythm with a normal S1 and S2. No gallops, murmurs, or rubs. Normal PMI, no JVD. No pulse deficits. Respiratory: Lungs have equal breath sounds bilaterally, clear to auscultation and percussion. No rales, rhonchi or wheezes noted. No increased work of breathing, no retractions or nasal flaring. 19:59 Back: No spinal tenderness. No costovertebral tenderness. Full range of motion. Skin: Warm, dry with normal turgor. Normal color with no rashes, no lesions, and no evidence of cellulitis. MS/ Extremity: Pulses equal, no cyanosis. Neurovascular intact. Full, normal range of motion. Neuro: Awake and alert, GCS 15, oriented to person, place, time, and situation. Cranial nerves II-XII grossly intact. Motor strength 5/5 in all extremities. Sensory grossly intact. Cerebellar exam normal. Normal gait. Psych: Awake, alert, with orientation to person, place and time. Behavior, mood, and affect are within normal limits. 19:59 Constitutional: The patient appears in no acute distress, alert, awake, uncomfortable. 19:59 Abdomen/GI: Inspection: abdomen appears normal, Bowel sounds: normal, in all quadrants, Palpation: moderate abdominal tenderness, in the epigastric area and umbilical area, Rectal exam: the exam is deferred, because of patient request, Indicators: McBurney's point is not tender, Palmer's sign is negative, Rovsing's sign is negative, Obturator sign is negative, Psoas sign is negative, Liver: no appreciated palpable abnormalities, Hernia: not appreciated. Vital Signs: 19:08 BP 145 / 109; Pulse 69; Resp 16; Temp 98.6; Pulse Ox 98% ; Pain 10/10; ll1 20:44 BP 138 / 89; Pulse 55; Resp 19; Pulse Ox 98% ; rr5 22:15 BP 133 / 70; Pulse 60; Resp 19; Pulse Ox 99% ; Pain 0/10; rr5 MDM: 19:47 Patient medically screened. mh7 21:54 Differential diagnosis: appendicitis, bowel obstruction, cholecystitis, Cholelithiasis, mh7 diverticulitis, gastritis, gastroesophageal reflux disease, non-specific abd pain, pancreatitis, Peptic Ulcer Disease, urinary tract infection. Differential diagnosis: Pyelonephritis. Data reviewed: vital signs. Data reviewed: nurses notes, old medical records, lab test result(s), CBC, electrolytes, urinalysis, EKG, radiologic studies, CT scan. Data interpreted: Pulse oximetry: on room air is 98 %. Interpretation: normal. Counseling: I had a detailed discussion with the patient and/or guardian regarding: the historical points, exam findings, and any diagnostic results supporting the discharge/admit diagnosis, the presence of at least one elevated blood pressure reading (>120/80) during this emergency department visit, lab results, radiology results, the need for outpatient follow up, to return to the emergency department if symptoms worsen or persist or if there are any questions or concerns that arise at home. Response to treatment: the patient's symptoms have resolved after treatment, the patient's blood pressure is in an acceptable range, mental status has returned to baseline, the patient no longer shows bradycardia, the patient is not short of breath, the patient is not tachycardic, the patient's pain is gone, the patient's temperature has normalized. 03/20 19:50 Order name: Basic Metabolic Panel; Complete Time: 20:56 [facility] 03/20 19:50 Order name: CBC with Diff; Complete Time: 20:56 [facility] 03/20 19:50 Order name: Hepatic Function; Complete Time: 20:56 [facility] 03/20 19:50 Order name: Lipase; Complete Time: 20:56 [facility] 03/20 20:04 Order name: CT Abd/Pelvis - IV Contrast Only; Complete Time: 21:23 [facility] 03/20 19:50 Order name: IV Saline Lock; Complete Time: 20:02 [facility] 03/20 19:50 Order name: Labs collected and sent; Complete Time: 20:02 [facility] 03/20 19:50 Order name: EKG - Nurse/Tech; Complete Time: 20:02 [facility] 03/20 19:50 Order name: Urine Dipstick-Ancillary (obtain specimen); Complete Time: 21:29 [facility] Administered Medications: 19:50 Drug: Pepcid 20 mg Route: IVP; Site: right antecubital; rr5 21:28 Follow up: Response: No adverse reaction rr5 19:50 Drug: NS 0.9% 500 ml Route: IV; Rate: bolus; Site: right antecubital; rr5 20:30 Follow up: Response: No adverse reaction; IV Status: Completed infusion; IV Intake: rr5 500ml 19:52 Drug: Zofran (Ondansetron) 4 mg Route: IVP; Site: right antecubital; rr5 20:50 Follow up: Response: No adverse reaction rr5 19:54 Drug: morphine 4 mg {Note: rass 0.} Route: IVP; Site: right antecubital; rr5 20:20 Follow up: Response: No adverse reaction; Pain is decreased; RASS: Alert and Calm (0) rr5 21:28 Drug: GI Cocktail without - (Maalox Suspension 30 ml, Lidocaine Liquid 2 % 15 rr5 ml) Route: PO; Disposition: 03/20/20 21:57 Discharged to Home. Impression: Upper abdominal pain, unspecified, Enteritis, Vomiting. - Condition is Stable. - Discharge Instructions: Nausea and Vomiting, Adult, [id number], Abdominal Pain, Adult, [id number]. - Prescriptions for Zofran ODT 4 mg Oral tablet,disintegrating - place 1 tablet by TRANSLINGUAL route every 8 hours As needed; 10 tablet. Pepcid 20 mg Oral Tablet - take 1 tablet by ORAL route every 12 hours for 5 days; 10 tablet. - Work release form, Medication Reconciliation Form, Thank You Letter, Antibiotic Education, Prescription Opioid Use form. - Follow up: Private Physician; When: 1 - 2 days; Reason: Worsening of condition, Recheck today's complaints, Continuance of care, Re-evaluation by your physician. Follow up: Dhiraj Edwards MD; When: 2 - 3 days; Reason: Worsening of condition, Recheck today's complaints. - Problem is an ongoing problem. - Symptoms have improved. Signatures: Dispatcher [employer] EDAgustin Bonilla RN RN rr5 Sofi Obrien RN RN ll1 Izaiah Gardner MD MD mh7 Corrections: (The following items were deleted from the chart) 22:14 21:57 03/20/2020 21:57 Discharged to Home. Impression: Upper abdominal pain, rr5 unspecified; Enteritis; Vomiting. Condition is Stable. Forms are Medication Reconciliation Form, Thank You Letter, Antibiotic Education, Prescription Opioid Use. Follow up: Private Physician; When: 1 - 2 days; Reason: Worsening of condition, Recheck today's complaints, Continuance of care, Re-evaluation by your physician. Follow up: Dhiraj Edwards; When: 2 - 3 days; Reason: Worsening of condition, Recheck today's complaints. Problem is an ongoing problem. Symptoms have improved. mh7
[2020-03-20 22:22] VITALS: TEMP 98.6; O2SAT 98
[2020-03-20 22:23] VITALS: BP 138/89
== END 2020-03-20 22:14 | disposition home or self-care (01) ==
LOC: ER 18:53
DX: K52.9 Noninfective gastroenteritis and colitis, unspecified (principal); R11.10 Vomiting, unspecified; I10 Essential (primary) hypertension; F17.210 Nicotine dependence, cigarettes, uncomplicated
CPT/HCPCS: 96361; 93005; 85025; 80048; 36415; 80076; 83690; 74177; 96375; 96374; 99284; Q9967; J7040; J2405

== ENCOUNTER → 2023-07-10 | Emergency (ER) | payer BC, OTHER ==
[~2023-07-10] MED LIST: IBUPROFEN 400 MG TAB ONE
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
[2023-07-10 23:30] VITALS: BP 176/84; TEMP 97.9; O2SAT 98
== END ==
LOC: ER 20:42
DX: M79.622 Pain in left upper arm (principal); V53.5XXA Driver of pick-up truck or van injured in collision with car, pick-up truck or van in traffic accident, initial encounter; F17.210 Nicotine dependence, cigarettes, uncomplicated
CPT/HCPCS: 71045; 99284